=== PATIENT | male | born 2000 | race Caucasian/White ===

== ENCOUNTER 2022-01-18 00:54 | Emergency (ER) | payer BC ==
[~2022-01-18] VITALS: Ht 190 cm; Wt 108.0 kg
[2022-01-18] MEDS ORDERED: RX-NAPROXEN (NAPROSYN) 250 MG TAB PPK#4 PO STA (01:59)
[2022-01-18] MEDS ORDERED: MELO15TA39 PO (02:04)
--- NOTE | 2022-01-18 02:04 | ED Upper Extremity ---
General Chief Complaint: Upper Extremity Stated Complaint: L SHOULDER PAIN,INTOXICATION Nursing Triage Note: patient states he was carring 4 30 packs, states now has pain in his shoulder. Allergies and Home Medications Allergies Coded Allergies: No Known Drug Allergies (Unverified , 01/18/22) Past Efcthnh-Oddwxc-Xeckgc Hx Patient Social History Tobacco Use?: No Substance use?: No Alcohol Use?: Yes Alcohol type: Beer Physical Exam Vital Signs Vital Signs - First Documented 01/18/22 00:55 Temp 36.3 Pulse 89 Resp 20 B/P (MAP) 154/99 (117) Pulse Ox 98 O2 Delivery Room Air Capillary Refill : Less Than 3 Seconds Height, Weight, BMI Height: '" Weight: lbs. oz. kg; 29.00 BMI Method: Progress/Results/Core Measures Results/Orders My Orders Orders - JUAN R BRYANT DO Shoulder, Bilateral, 3 Views (01/18/22 01:21) Vital Signs/I&O 01/18/22 00:55 Temp 36.3 Pulse 89 Resp 20 B/P (MAP) 154/99 (117) Pulse Ox 98 O2 Delivery Room Air Blood Pressure Mean: 117 Departure Impression Primary Impression: Right shoulder strain Disposition: 01 HOME, SELF-CARE Condition: Stable Departure-Patient Inst. Decision time for Depature: 02:02 Referrals: KAY ORR MD Patient Instructions: How to Use a Shoulder Sling ED, Overuse Injuries (DC), Shoulder Sprain (DC), Using Cold for Pain Add. Discharge Instructions: WEAR SHOULDER IMMOBILIZER AT ALL TIMES ICE TO AREA AT 20 MINUTE INTERVALS TYLENOL 1 GRAM 4 TIMES A DAY FOR PAIN FOLLOW UP WITH DR. ORR, ORTHOPEDIC SURGEON, NEXT WEEK FOR FURTHER CARE--CALL ON THURSDAY TO SCHEDULE APPOINTMENT All discharge instructions reviewed with patient and/or family. Voiced understanding. Scripts Meloxicam (Meloxicam) 15 Mg Tablet 15 MG PO DAILY, #10 TAB Prov: JUAN R BRYANT DO 01/18/22 JUAN R BRYANT DO Jan 18, 2022 02:04
[2022-01-18 02:26] VITALS: BP 154/99
--- NOTE | 2022-01-18 08:08 | Diagnostic Imaging Report ---
INDICATION: Bilateral shoulder pain. TECHNIQUE: Three views of the bilateral shoulders at 1:14 AM. CORRELATION STUDY: None. FINDINGS: There is subtle asymmetry with the left acromioclavicular joint slightly more prominent compared to prior. Additionally, there is very slight inferior positioning of the acromion in relation to the distal clavicle. Glenohumeral joint is maintained. Right shoulder is maintained and unremarkable. The visualized soft tissues are unremarkable. IMPRESSION: 1. Subtle asymmetry at the left acromioclavicular joint which may very well be normal variation. Possibility of ligamentous injury is not completely excluded. The shoulders otherwise have an unremarkable appearance. 2. The report was called to Dr. Garcia by [email or web address]@8:07 AM. Dictated by: Dictated on workstation # [id number]
== END 2022-01-18 02:28 | disposition home or self-care (01) ==
LOC: EDUNIT# 00:54 → ER 00:57
DX: S46.911A Strain of unspecified muscle, fascia and tendon at shoulder and upper arm level, right arm, initial encounter (principal); Z28.310 Unvaccinated for COVID-19; X58.XXXA Exposure to other specified factors, initial encounter; Y93.89 Activity, other specified
CPT/HCPCS: 73030; 99283; L3650